=== PATIENT | male | born 1945 ===

== ENCOUNTER 2023-05-12 23:55 | Inpatient (IN) | payer MEDICARE, MEDICAID ==
[~2023-05-12] VITALS: Ht 172.7 cm; Wt 61.7 kg
[2023-05-13] VITALS (8 sets, daily range): BP systolic 132–139; BP diastolic 67–68; PULSE 52–73; RESP 16–18; TEMP 97.9; O2SAT 87–100
[2023-05-13 01:37] LABS: Hematocrit 37.9 % (41.0-53.0); Hemoglobin 12.7 g/dL (13.5-17.5); Mean Corpuscular Hgb Conc. 33.4 g/dL (32.0-36.0); Mean Corpuscular Volume 83.7 fL (80.0-100.0); Red Blood Cells 4.52 10^6/uL (4.5-5.90); Red Cell Distribution Width 17.2 % (11.8-14.3); White Blood Cell 5.5 10^3/uL (4.4-10.8)
[2023-05-13 01:49] LABS: Basophils % (manual) 0 (0.0-2.0); Blast Cells 0; Eosinophils % (manual) 0 (0-7); Metamyelocytes % 0; Myelocytes % 0; Promyelocytes % 0; Reactive Lymphocytes 0
[2023-05-13 01:55] LABS: Albumin 3.7 g/dL (3.4-5.0); BUN/Creatinine Ratio 14.1 (10.0-20.0); Potassium 3.8 mmol/L (3.5-5.1)
[2023-05-13 01:58] LABS: Bilirubin, Total 0.9 mg/dL (0.2-1.0); Lactic Acid w/Reflex 2.1 mmol/L (0.4-2.0); Total Protein 7.6 g/dL (6.4-8.2)
[2023-05-13] MEDS ORDERED: SODIUM CHLORIDE 0.9% 1,000 ML IV ONE ×2 (02:30→05:30)
[2023-05-13] MEDS ORDERED: diphenhdrAMINE HCL 50 MG/1 ML VL IV ONE (02:30)
[2023-05-13] MEDS ORDERED: LORazepam 2MG/ML-1ML VIAL IV ONE (02:30)
[2023-05-13 03:04] LABS: Band Neutrophils % (manual) 3; Lymphocytes % (manual) 13 (10.0-50.0); Monocytes % (manual) 14 (0-12)
[2023-05-13] MEDS ORDERED: SOD CHL 0.45% 1,000 ML IV ONE (03:30)
[2023-05-13 04:25] LABS: Urine Bacteria FEW /hpf (None Seen); Urine Blood 1+ /uL (Negative); Urine Hyaline Cast FEW /lpf (0 - 2); Urine Mucus FEW (None Seen); Urine Specific Gravity 1.026 (1.001-1.035); Urine WBC 4 /hpf (0 - 3)
[2023-05-13 04:27] LABS: Alcohol, Urine < 3.0 mg/dL (0-10); Amphetamine Screen, Urine POSITIVE (NEGATIVE); Barbiturate Scree,Urine NEGATIVE (NEGATIVE); Benzodiazephine Screen, Urine NEGATIVE (NEGATIVE); Cannabinoid Screen, Urine NEGATIVE (NEGATIVE); Cocaine Screen, Urine NEGATIVE (NEGATIVE); Opiate Scree,Urine NEGATIVE (NEGATIVE)
[2023-05-13 04:34] LABS: Phencyclidine Screen, Urine NEGATIVE (NEGATIVE)
[2023-05-13] MEDS ORDERED: levoFLOXacin 500MG 100 ML IV ONE (05:30)
[2023-05-13] MEDS ORDERED: MORPHINE SULFATE INJ 2 MG/ml SYRG IV PRN (06:15)
[2023-05-13] MEDS ORDERED: ONDANSETRON HCL 4 MG/2 ML VIAL IV PRN (06:15)
[2023-05-13] MEDS ORDERED: ACETAMINOPHEN 325 MG TAB PO PRN (06:15)
[2023-05-13] MEDS ORDERED: NITROGLYCERIN 0.4 MG SL TAB SL PRN (06:15)
[2023-05-13] MEDS ORDERED: ALBUTEROL SULF 2.5 MG/0.5ML(0.5%) NEB SOLN NEB PRN (06:15)
[2023-05-13] MEDS: SODIUM CHLORIDE 0.9% 1,000 ML IV SCH (06:50)
[2023-05-13] MEDS: cefTRIAXone 1GM/50ML D5W 50 ML IV SCH (09:21)
[2023-05-13] MEDS: PANTOPRAZOLE 40 MG TAB PO SCH (10:00)
[2023-05-13] MEDS: AZITHROMYCIN 500MG/ 250ML 250 ML IV SCH (10:19)
[2023-05-13] MEDS ORDERED: DEXTROSE (50%) 50ML SYRG IV ONE (13:00)
[2023-05-13 16:05] LABS: Potassium 4.1 mmol/L (3.5-5.1)
[2023-05-13] MEDS: InsuLIN REG 1unit/0.01ml Soln (100units/ml) SC SCH (18:00)
[2023-05-13] MEDS: ACCU-CHEK COMFORT CURVE STRIP VI SCH (18:17)
[2023-05-13] MEDS: DEXTROSE (50%) 50ML SYRG IV PRN (18:27)
[2023-05-13] MEDS ORDERED: LEVO150T10 PO (23:30)
[2023-05-14] VITALS (8 sets, daily range): BP systolic 113–145; BP diastolic 56–79; PULSE 52–77; RESP 14–17; TEMP 96.9–98.1; O2SAT 96–100
[2023-05-14] MEDS: ACCU-CHEK COMFORT CURVE STRIP VI SCH ×5 (00:09→23:14)
[2023-05-14] MEDS: SODIUM CHLORIDE 0.9% 1,000 ML IV SCH ×2 (00:09→09:58)
[2023-05-14 05:55] LABS: Calcium 7.9 mg/dL (8.5-10.1); Potassium 3.4 mmol/L (3.5-5.1)
[2023-05-14] MEDS: InsuLIN REG 1unit/0.01ml Soln (100units/ml) SC SCH ×5 (06:00→23:15)
[2023-05-14 06:01] LABS: BUN/Creatinine Ratio 11.7 (10.0-20.0); Bilirubin, Total 0.9 mg/dL (0.2-1.0); Total Protein 7.3 g/dL (6.4-8.2)
[2023-05-14 06:20] LABS: Basophils # (auto) 0 10 ^3/uL (0-0.2); Basophils % (auto) 0.4 % (0.0-2.0); Eosinophils # (auto) 0.1 10 ^3/uL (0-0.8); Hematocrit 43.5 % (41.0-53.0); Hemoglobin 14.1 g/dL (13.5-17.5); Lymphocytes # (auto) 0.8 10 ^3/uL (0.4-5.4); Lymphocytes % (auto) 15.5 % (10.0-50.0); Mean Corpuscular Hemoglobin 28.1 pg (28.0-32.0); Mean Corpuscular Hgb Conc. 32.4 g/dL (32.0-36.0); Mean Corpuscular Volume 86.7 fL (80.0-100.0); Monocytes # (auto) 0.9 10 ^3/uL (0-1.3); Monocytes % (auto) 17.9 % (0.0-12.0); Neutrophils # (auto) 3.3 10 ^3/uL (1.6-8.6); Neutrophils % (auto) 65.2 % (37.0-80.0); Nucleated Red Blood Cells % 0.1 %; Red Blood Cells 5.02 10^6/uL (4.5-5.90); Red Cell Distribution Width 17.4 % (11.8-14.3); White Blood Cell 5.1 10^3/uL (4.4-10.8)
[2023-05-14] MEDS ORDERED: POTASSIUM EFFERVESENT TAB 25 MEQ PO ONE (08:15)
[2023-05-14] MEDS: cefTRIAXone 1GM/50ML D5W 50 ML IV SCH (09:58)
[2023-05-14] MEDS: PANTOPRAZOLE 40 MG TAB PO SCH (09:58)
[2023-05-14] MEDS: AZITHROMYCIN 500MG/ 250ML 250 ML IV SCH (10:30)
[2023-05-14] MEDS: DEXTROSE (50%) 50ML SYRG IV PRN ×2 (11:56→17:13)
[2023-05-14 13:30] LABS: Potassium 3.5 mmol/L (3.5-5.1)
[2023-05-15 05:00] VITALS: BP 102/59; PULSE 77; RESP 14; TEMP 97.9; O2SAT 98
[2023-05-15] MEDS: InsuLIN REG 1unit/0.01ml Soln (100units/ml) SC SCH ×2 (06:00→11:28)
[2023-05-15] MEDS: ACCU-CHEK COMFORT CURVE STRIP VI SCH ×2 (06:39→11:28)
[2023-05-15 06:52] LABS: Basophils # (auto) 0 10 ^3/uL (0-0.2); Basophils % (auto) 0.6 % (0.0-2.0); Eosinophils # (auto) 0.1 10 ^3/uL (0-0.8); Eosinophils % (auto) 1.4 % (0.0-7.0); Hematocrit 37.9 % (41.0-53.0); Hemoglobin 12.8 g/dL (13.5-17.5); Lymphocytes # (auto) 0.9 10 ^3/uL (0.4-5.4); Lymphocytes % (auto) 21.5 % (10.0-50.0); Mean Corpuscular Hemoglobin 27.6 pg (28.0-32.0); Mean Corpuscular Hgb Conc. 33.7 g/dL (32.0-36.0); Mean Corpuscular Volume 81.9 fL (80.0-100.0); Monocytes # (auto) 0.7 10 ^3/uL (0-1.3); Monocytes % (auto) 15.3 % (0.0-12.0); Neutrophils # (auto) 2.6 10 ^3/uL (1.6-8.6); Neutrophils % (auto) 61.2 % (37.0-80.0); Nucleated Red Blood Cells % 0.2 %; Red Blood Cells 4.62 10^6/uL (4.5-5.90); Red Cell Distribution Width 16.5 % (11.8-14.3); White Blood Cell 4.3 10^3/uL (4.4-10.8)
[2023-05-15 07:12] LABS: Potassium 3.4 mmol/L (3.5-5.1)
[2023-05-15 07:17] LABS: BUN/Creatinine Ratio 12.3 (10.0-20.0); Calcium 7.3 mg/dL (8.5-10.1)
[2023-05-15] MEDS: POTASSIUM EFFERVESENT TAB 25 MEQ PO ONE ×2 (07:30→09:55)
[2023-05-15 08:00] VITALS: PULSE 88
[2023-05-15 09:00] VITALS: BP 108/69; PULSE 92; RESP 18; TEMP 97.6; O2SAT 100
[2023-05-15] MEDS: cefTRIAXone 1GM/50ML D5W 50 ML IV SCH ×2 (09:00→09:55)
[2023-05-15] MEDS ORDERED: LEVO750T40 PO (09:20)
[2023-05-15] MEDS: AZITHROMYCIN 500MG/ 250ML 250 ML IV SCH (10:00)
[2023-05-15] MEDS ORDERED: POTASSIUM PHOSPHATE 26.4 MEQ in SODIUM CHL 0.9% 100 ML IV ONE (10:00)
[2023-05-15] MEDS: DEXTROSE (50%) 50ML SYRG IV PRN (11:13)
[2023-05-15 12:59] VITALS: BP 131/71; PULSE 66; RESP 18; TEMP 97.6; O2SAT 99
[2023-05-15 14:10] VITALS: BP 131/71; PULSE 66; RESP 18; TEMP 97.6; O2SAT 99
== END 2023-05-15 14:45 | disposition home health service (06) | DRG 92 ==
LOC: ER 23:55 → EDBD 05-13 06:12 → TELE 05-13 06:12 → TELE-EAST 05-13 20:20
PROVIDERS: ADMIT Internal Medicine Pulmonary Disease; ATTEND Student in an Organized Health Care Education/Training Program
DX: G92.9 Unspecified toxic encephalopathy (principal); E87.0 Hyperosmolality and hypernatremia; N17.9 Acute kidney failure, unspecified; J81.1 Chronic pulmonary edema; J84.9 Interstitial pulmonary disease, unspecified; F15.10 Other stimulant abuse, uncomplicated; E86.0 Dehydration; M47.812 Spondylosis without myelopathy or radiculopathy, cervical region; J84.10 Pulmonary fibrosis, unspecified; E87.6 Hypokalemia; R00.1 Bradycardia, unspecified; Z93.0 Tracheostomy status; Z59.00 Homelessness unspecified; E16.2 Hypoglycemia, unspecified; J44.9 Chronic obstructive pulmonary disease, unspecified
CPT/HCPCS: 36415; 36600; 70450; 70551; 71045; 71250; 72125; 72141; 80048; 80051; 80053; 80307; 80320; 81001; 82040; 82140; 82805; 82962; 83605; 83735; 84100; 84425; 84484; 85007; 85025; 85027; 86703; 86803; 87040; 87340; 92610; 93005; 96361; 96365; 96367; 96375; G0378; J0696; J1956